=== PATIENT | male | born 1995 | race Caucasian/White ===

== ENCOUNTER 2016-08-12 17:24 | Emergency (ER) | payer MEDICAID ==
[2016-08-12 17:31] VITALS: BP 110/75; PULSE 81; RESP 16; TEMP 98.1; O2SAT 94
--- NOTE | 2016-08-12 18:12 | EDPHY ---
H & P Time Seen by Provider: 08/12/16 17:49 HPI/ROS: This is a 21-year-old male presenting to the emergency department, complaining of lower back pain onset 2 days ago does have a history of chronic lower back pain due to an injury at age 13, patient also concerned wanting an STD check for exposure. Denies any nausea vomiting or abdominal pain, or any painful urination REVIEW OF SYSTEMS: Constitutional: (-)fever (-)chills (-)changes in appetite ENT: (-)sore throat Respiratory: (-)shortness of breath Cardiac: (-)chest pain Gastrointestinal: (-)abdominal pain (-)nausea/vomit Genitourinary: (-)dysuria (-)penile discharge (-)bowel/bladder incont Musculoskeletal: (+)lower back pain Skin: (-)rashes Neurological: (-) headache (-)dizziness Past Medical/Surgical History: PMH: chronic lower back pain since age 13 Smoking Status: Current every day smoker (THC weekly, tobacco/weekly) Physical Exam: CONSTITUTIONAL: patient appeared well nourished, non-ill appearing and normally developed. No acute distress. Vital signs as documented. HEENT: NCAT NECK: FROM RESP: Non-labored resp effort NEURO: AAOx3 NAD ambulatory without difficulty : Decline exam MSK: (+)FROM without difficulty. (+)cms intact (-)LS spine tenderness on palp ( -)straight leg rasies SKIN: (-)rash PSYCH: Normal affect, calm, no distress Constitutional: Initial Vital Signs Temperature (C) 36.7 C 08/12/16 17:27 Heart Rate 81 08/12/16 17:27 Respiratory Rate 16 08/12/16 17:27 Blood Pressure 110/75 08/12/16 17:27 O2 Sat (%) 94 08/12/16 17:27 Allergies/Adverse Reactions: Sulfa (Sulfonamide Antibiotics) Allergy (Verified 05/04/16 12:02) Home Medications: Medication Instructions Recorded NK [No Known Home Meds] 05/04/16 Medical Decision Making ED Course/Re-evaluation: This is a 21-year-old male presenting to the emergency department, complaining of lower back pain onset 2 days ago does have a history of chronic lower back pain due to an injury at age 13, patient also concerned wanting an STD check for exposure. Discussed plan of care: GC/Chlam on urine sent, the 250 mg IM Rocephin, 1 g of vancomycin p.o. given in the ED. Clinical impression 1. STD exposure 2. Chronic lower back pain, other differential diagnosis considered but not limited to sciatica, UTI and cauda equina Discharge home---> stable, discussed discharge instructions the patient 1. Call the ED in 48 hours for results 2. Recommend no sexual contact for at least 2 weeks or until you have received results 3. Decrease any strenuous activity, heating pad or hot tub soaks for lower back 4. Follow-up with [facility] [place] or [facility] as needed 5. You can take ibuprofen 600 mg every 6-8 hours as needed for lower back pain. 6. If you have any concerns or any worsening symptoms please return to the emergency department. Patient verbalized understanding of discharge instructions Differential Diagnosis: Clinical impression 1. STD exposure 2. Chronic lower back pain, other differential diagnosis considered but not limited to sciatica, UTI and cauda equina - Data Points Laboratory Results: 08/12/16 08/12/16 18:09 18:09 Urine Color YELLOW Urine Appearance MODERATELY TURBID Urine pH 8.0 H (5.0-7.5) Ur Specific [place] 1.021 (1.002-1.030) Urine Protein NEGATIVE (NEGATIVE) Urine Ketones NEGATIVE (NEGATIVE) Urine Blood NEGATIVE (NEGATIVE) Urine Nitrate NEGATIVE (NEGATIVE) Urine Bilirubin NEGATIVE (NEGATIVE) Urine Urobilinogen NEGATIVE EU EU (0.2-1.0) Ur Leukocyte Esterase NEGATIVE (NEGATIVE) Ur Culture Indicated? NOT INDICATED (NI) Urine Glucose NEGATIVE (NEGATIVE) C.trachomatis RNA (TMA) Pending N.gonorrhoeae RNA (TMA) Pending Medications Given: Discontinued Medications Azithromycin (Zithromax) 1,000 mg PO EDNOW ONE PRN Reason: Protocol Stop: 08/12/16 18:20 Last Admin: 08/12/16 18:46 Dose: Not Given Ceftriaxone Sodium (Rocephin Im Syringe) 250 mg IM ONCE ONE PRN Reason: Protocol Stop: 08/12/16 18:20 Last Admin: 08/12/16 18:46 Dose: Not Given Departure - Departure Disposition: Home, Routine, Self-Care Clinical Impression: STD exposure Instructions: Sexually Transmitted Diseases in Adolescents (ED), Lumbar Radiculopathy (ED), Lower Back Exercises (ED), Safe Sex Practices for Adolescents (ED) Referrals: Landon Bryant MD [Medical Doctor] - As per Instructions ([facility] [phone])
[2016-08-12] MEDS ORDERED: AZITHROMYCIN 250 MG TAB PO ONE (18:19)
[2016-08-12] MEDS ORDERED: CEFTRIAXONE IM 350 MG/ML SYRINGE IM ONE (18:19)
[2016-08-12 18:46] LABS: COLOR YELLOW; LEUKOCYTE ESTERASE,URINE NEGATIVE (NEGATIVE); NITRITE,URINE NEGATIVE (NEGATIVE)
[2016-08-13 13:25] LABS: CHLAMYDIA AMPLIFICATION GENPRB NEGATIVE (NEGATIVE)
== END 2016-08-12 18:46 | disposition home or self-care (01) ==
DX: Z20.2 Contact with and (suspected) exposure to infections with a predominantly sexual mode of transmission (principal); F17.200 Nicotine dependence, unspecified, uncomplicated
CPT/HCPCS: J0696